=== PATIENT | male | born 1940 | race Caucasian/White ===

== ENCOUNTER 2022-12-24 14:02 | Outpatient (CLI) | payer OTHER, SELFPAY ==
--- NOTE | 2022-12-24 13:45 | USCV_ITS ---
Dewayne Haddad Age: 82 Gender: M : 1940 Exam Date: 12/24/2022 14:14 Ordering Phys: Graham Hamilton Technologist: MANUEL Exam Location: [facility] [place] Indication: CAD BP: 132 / 80 HR: 61 Rhythm: Sinus Technical Quality: Fair MEASUREMENTS (Male / Female) Normal Values 2D ECHO LV Diastolic Diameter PLAX 4.9 cm 4.2 - 5.9 / 3.9 - 5.3 cm LV Systolic Diameter PLAX 2.5 cm IVS Diastolic Thickness 1.4 cm 0.6 - 1.0 / 0.6 - 0.9 cm IVS Systolic Thickness 2.0 cm LVPW Diastolic Thickness 0.6 cm 0.6 - 1.0 / 0.6 - 0.9 cm LVPW Systolic Thickness 1.9 cm LVOT Diameter 2.1 cm LV Ejection Fraction 2D Teich 80.5 % LV Ejection Fraction MOD 2C 47.4 % LV Ejection Fraction 2C AL 48.3 % LA Diameter 4.2 cm LA Width 4.3 cm LA Height 4.5 cm RA Width 2.5 cm RA Height 4.2 cm Aorta at Sinotubular Diameter 3.4 cm IVC Diameter 2.0 cm M-MODE Aortic Annulus Diameter 3.9 cm LA Ao Ratio MM 1.2 MV E Point Septal Separation 0.6 cm DOPPLER AV Peak Velocity 116.0 cm/s LVOT Peak Velocity 79.0 cm/s AV Area Cont Eq vti 2.5 cm squared AV Area Cont Eq pk 2.3 cm squared MV Peak Velocity 65.0 cm/s MV Area PHT 3.1 cm squared Mitral E to A Ratio 0.9 MV E' Velocity 22.5 cm/s Mitral E to MV E' Ratio 6.6 Mitral E to LV E' Lateral Ratio 7.9 Mitral E to LV E' Septal Ratio 5.8 TR Peak Velocity 110.3 cm/s TR Peak Gradient 4.9 mmHg Right Atrial Pressure 5.0 mmHg Pulmonary Artery Systolic Pressu 9.9 mmHg PV Peak Velocity 77.0 cm/s RV Acceleration Time 0.1 s RV Ejection Time 0.3 s RV AcT/ET 0.4 FINDINGS Left Ventricle Technically limited quality echocardiogram because of poor ultrasonic windows. Grossly LV systolic function is normal. Regional wall motion abnormalities cannot accurately be assessed because of poor visualization. Right Ventricle Not well visualized Right Atrium Normal in size Left Atrium Normal in size Mitral Valve Grossly normal. Mild mitral regurgitation Aortic Valve Aortic valve is thickened. Mild to moderate aortic regurgitation. No significant aortic stenosis. Tricuspid Valve Trace tricuspid regurgitation. Insufficient TR jet to calculate RVSP Pulmonic Valve Mild pulmonic regurgitation Pericardium Pleural effusion is seen however limited visualization Aorta Mildly dilated ascending aorta with diameter of 3.69cm. IVC Appears to be normal CONCLUSIONS Technically limited quality echocardiogram because of poor ultrasonic windows. Grossly LV systolic function is normal. Regional wall motion abnormalities cannot accurately be assessed because of poor visualization. Mild mitral regurgitation Mild to moderate aortic regurgitation Trace tricuspid regurgitation Mild pulmonic regurgitation Pleural effusion is seen Mildly dilated ascending aorta with diameter of 3.69cm. No comparison studies are available. Parveen Infante MD (Electronically Signed) Final Date: 26 December 2022 10:35 S
== END 2022-12-24 14:03 | disposition home or self-care (01) ==
LOC: RAD 14:04
PROVIDERS: Visit Provider Chiropractor
DX: I25.10 Atherosclerotic heart disease of native coronary artery without angina pectoris (principal); I08.8 Other rheumatic multiple valve diseases
CPT/HCPCS: 93306